=== PATIENT | female | born 1980 | race Caucasian/White ===

== ENCOUNTER 2021-10-04 12:20 | Emergency (ER) | payer OTHER, SELFPAY ==
--- NOTE | ~2021-10-04 | CT_ITS ---
EXAMINATION: CT brain wo con DATE: 10/04/2021 13:06 INDICATION: Headache post head injury TECHNIQUE: Computed tomography (CT) of the head was performed without intravenous contrast. Sagittal and coronal reconstructions were performed. The mA was adjusted according to patient size. Iterative reconstruction technique was employed. The dose-length product was 605.33 mGy-cm. COMPARISON: None FINDINGS: No fracture. No acute intracranial hemorrhage, acute infarction or abnormal extra axial fluid collect ion. Ventricles are normal and symmetric. No mass/mass effect. The orbits, paranasal sinuses and mast oid air cells are normal. IMPRESSION: 1. Normal head CT. No fracture or acute intracranial process. Reviewed, dictated and finalized at location [facility]. [facility]
[2021-10-04 12:27] VITALS: BP 127/80; PULSE 73; RESP 16; TEMP 36.4; O2SAT 100
--- NOTE | 2021-10-04 12:50 | ED.HA ---
HPI - Headache General Chief Complaint: Headache Stated Complaint: headache Time Seen by Provider: 10/04/21 12:28 Source: patient Mode of arrival: ambulatory Limitations: no limitations History of Present Illness HPI Narrative: Patient is a 41-year-old female complaining of headache, dull, generalized, 7 out of 10, nonradiating started 6 days ago after she hit her head on a ski lift. Patient denies any neck, chest, abdomen, back, pelvis, hip or any extremity pain/injury. Patient denies any loss of consciousness. Patient was able to stand up and ambulate after the fall. Patient denies any focal weakness or numbness, speech or visual disturbance, or unsteady gait. Related Data Allergies Allergy/AdvReac Type Severity Reaction Status Date / Time No Known Allergies Allergy Verified 10/04/21 13:39 Review of Systems Review of Systems: All systems reviewed & are unremarkable except as noted in HPI and below Constitutional: Constitutional: Denies body ache(s), Denies chills, Denies excessive sweating, Denies fatigue, Denies fever(s), Denies headache(s), Denies lethargy, Denies malaise, Denies weakness and Denies weight loss Eyes: Eyes: Denies blurry vision, Denies change in vision and Denies loss of vision ENT: Denies dizziness, Denies ear discharge, Denies headache(s), Denies lip swelling, Denies epistaxis, Denies nasal congestion, Denies neck pain, Denies throat swelling and Denies tongue swelling Cardiovascular: Cardiovascular: Denies chest pain, Denies chest pain at rest, Denies chest pain with activity, Denies diaphoresis, Denies rapid heart rate, Denies edema, Denies irregular heart rhythm, Denies lightheadedness, Denies palpitations, Denies dyspnea and Denies dyspnea on exertion Respiratory: Respiratory: Denies chest congestion, Denies cough, Denies hemoptysis, Denies dyspnea and Denies dyspnea on exertion Gastrointestinal: Gastrointestinal: Denies abdominal pain, Denies melena, Denies hematochezia, Denies diarrhea, Denies nausea, Denies vomiting and Denies hematemesis Musculoskeletal: Musculoskeletal: Denies abnormal gait, Denies deformity, Denies joint swelling, Denies limited range of motion, Denies neck pain and Denies numbness Neurologic: Denies Abnormal speech present, Denies abnormal gait, Denies confusion, Denies dizziness, Denies focal weakness, Denies loss of vision, Denies numbness, Denies Other visual disturbances, Denies Sensory deficit (Neuro) and Denies weakness Psychiatric: Psychiatric: Denies confusion, Denies depression, Denies auditory hallucinations, Denies homicidal ideation and Denies suicidal ideation Endocrine: Endocrine: Denies cold intolerance, Denies excessive sweating, Denies fatigue, Denies heat intolerance and Denies palpitations Hematologic/Lymphatic: Hematologic/Lymphatic: Denies easy bleeding and Denies easy bruising Allergic/Immunologic: Allergic/Immunologic: Denies lip swelling, Denies throat swelling and Denies tongue swelling PMFSH Comments Past medical history: None Family history: Unknown Social history: Non-smoker, occasional EtOH, no drug use Exam Const: General: cooperative, healthy appearing, comfortable, no acute distress, well developed, alert and awake; No confusion Orientation/consciousness: oriented to person, oriented to place, oriented to time, patient oriented x3 and No confusion Limitations: no limitations HENMT: Head: normal to inspection, normocephalic and atraumatic Ears: hearing grossly normal bilaterally, TM normal on the right and TM normal on the left General nose exam: Normal external nose present, Normal nares present and No nasal discharge present Face and sinus: normal facial exam Mouth: Yes Normal oral and palatal mucosa present, Yes lip normal, Yes tongue normal and Yes oropharynx normal Throat: posterior oropharynx normal, tonsils normal and uvula midline Eyes: General: appearance normal, both eyes and all related structures Pupils: Equal, round and reactive p
[2021-10-04] MEDS: HYDROcodone/acetaminophen (*CRX) 5-325 MG TABLET 1 TAB PO (13:42)
[2021-10-04] MEDS: KETOROLAC 30 MG/ML VIAL (*BKC) IM (13:43)
[2021-10-04 14:51] VITALS: BP 128/80; PULSE 70; RESP 14; TEMP 36.5; O2SAT 100
== END 2021-10-04 14:53 | disposition home or self-care (01) ==
PROVIDERS: Emergency Provider Emergency Medicine
DX: F07.81 Postconcussional syndrome (principal); G44.309 Post-traumatic headache, unspecified, not intractable
CPT/HCPCS: 70450; 96372; 99284; A9270; J1885

== ENCOUNTER 2022-09-04 13:14 | Emergency (ER) | payer OTHER, MEDICAID, SELFPAY ==
[2022-09-04 13:18] VITALS: BP 178/92; PULSE 96; RESP 18; TEMP 36.4; O2SAT 99
--- NOTE | 2022-09-04 13:29 | ED.ABDPAIN ---
HPI - Abdominal Pain General Chief Complaint: Abdominal Pain Stated Complaint: abd pain, vomiting Time Seen by Provider: 09/04/22 13:17 History of Present Illness HPI narrative: Pt presents with epigastric and LUQ abdominal pain this morning. Pt has had vomiting in the mornings the last several days and one episode of diarrhea. Pt has taken ibuprofen the last couple of days as well. Pt says the pain radiates through to her back. Pt has no significant GI history. Pt had partial hysterectomy in February. Related Data Allergies Allergy/AdvReac Type Severity Reaction Status Date / Time No Known Allergies Allergy Verified 10/04/21 13:39 Review of Systems Review of Systems: All systems reviewed & are unremarkable except as noted in HPI and below Exam Const: General: healthy appearing Nutritional Appearance: well nourished Limitations: no limitations HENMT: Mouth: Yes Normal oral and palatal mucosa present Resp: Effort & Inspection: normal respiratory effort Auscultation: clear to auscultation bilaterally Cardio: Rate: regular rate Rhythm: regular rhythm GI: GI Palp: Yes Soft to palpation and Yes Tenderness to palpation present (GI) (LUQ) Auscultation: normal bowel sounds Skin: General skin exam: normal color Rashes: no rashes Neuro: General: patient oriented x3, moves all extremities, no focal motor deficits and CN's II-XI intact bilaterally Cranial nerves: Yes Nystagmus not present Speech: normal speech Extrem: General: normal to inspection and no clubbing, cyanosis or edema Psych: Mental Status: mental status grossly normal Affect: normal affect Attitude: cooperative Course Course Emergency Course: pt feels much better after IV zofran and pepcid and fentanyl. labs look good. likely gastritis, will discharge home on pepcid and zofran. Vital Signs Vital signs: Vital Signs Temperature 97.6 F 09/04/22 13:18 Pulse Rate 96 09/04/22 13:18 Respiratory Rate 18 09/04/22 13:18 Blood Pressure 178/92 H 09/04/22 13:18 Pulse Oximetry 99 09/04/22 13:18 Oxygen Delivery Room Air 09/04/22 13:18 Temperature 97.6 F 09/04/22 13:18 Pulse Rate 78 09/04/22 15:28 Respiratory Rate 16 09/04/22 15:28 Blood Pressure 124/88 09/04/22 15:28 Pulse Oximetry 98 09/04/22 15:28 Oxygen Delivery Room Air 09/04/22 13:18 MDM - Abdominal Pain Differential Diagnosis Differential diagnosis: Likely other (gastritis, PUD, pancreatitis, gallstones) Lab Data Attestation: I reviewed the patient's lab results. 09/04/22 13:26 09/04/22 13:26 Labs: Lab Results 09/04/22 09/04/22 09/04/22 Range/Units 13:26 13:26 13:27 WBC 12.0 H (4.5-10.0) K/mm3 RBC 4.40 (4.2-5.4) M/mm3 Hgb 13.1 (12.0-15.0) g/dL Hct 41.1 (37.0-47.0) % MCV 93.4 (80-100) fl MCH 29.8 (26-34) pg MCHC 31.9 L (32-36) g/dl RDW 12.8 (11.5-14.5) % Plt Count 235 (150-375) k/mm3 MPV 10.8 H (7.4-10.4) fl Immature Gran % (Auto) 0.3 (0-0.5) % Neut % (Auto) 75.1 H (45.5-73.1) % Lymph % (Auto) 18.3 (18.3-44.2) % [place] % (Auto) 5.6 (2.6-8.5) % Eos % (Auto) 0.3 (0-4.4) % Baso % (Auto) 0.4 (0.2-1.2) % Lymph # (Auto) 2.19 (0.9-3.2) K/mm3 [place] # (Auto) 0.7 H (0.1-0.6) K/mm3 Eos # (Auto) 0.0 (0-0.3) K/mm3 Baso # (Auto) 0.1 (0.0-0.1) K/mm3 Abs Immat Gran (auto) 0.04 H (0.00-0.031) K/mm3 Absolute Neuts (auto) 9.0 H (1.3-6.7) K/mm3 Absolute Nucleated RBC 0.0 (0.0-0.012) K/mm3 Nucleated RBC % 0.0 (0.0-0.2) % Sodium 138 (137-145) mmol/L Potassium 3.5 (3.4-5.0) mmol/L Chloride 105 (98-107) mmol/L Carbon Dioxide 28 (22-30) mmol/L Anion Gap 5 L (8-16) mmol/L BUN 10 (7-17) mg/dL Creatinine 0.70 (0.7-1.0) mg/dL Estim Creat Clear Calc 88 ml/min Estimated GFR > 60 (59 - ) Glucose 120 H (65-110) mg/dL Calcium 9.2 (8.4-10.2) mg/dL Total Bilirubin 0.8 (0.2-1.3
[2022-09-04 13:34] LABS: Appearance Urine Clear (Clear); Bilirubin Urine Negative (Negative); Blood Urine Trace-lysed (Negative); Color Urine Yellow (Yellow); Glucose Urine UA Negative (Negative); Ketones Urine Negative (Negative); Leukocyte Esterase Ur Negative LEU/UL (Negative); Nitrate Urine Negative (Negative); Protein Urine Negative (Negative); Specific Grav Ur 1.025 (1.001-1.035); Urobilinogen Urine 0.2 mg/dL (<2.0); pH Urine 5.5 (5.0-9.0)
[2022-09-04 13:34] LABS: Basophils Absolute Auto 0.1 K/mm3 (0.0-0.1); Basophils Percent Auto 0.4 % (0.2-1.2); Eosinophils Percent Auto 0.3 % (0-4.4); Hematocrit 41.1 % (37.0-47.0); Hemoglobin 13.1 g/dL (12.0-15.0); Immature Granulocyte Absolute 0.04 K/mm3 (0.00-0.031); Immature Granulocyte Percent A 0.3 % (0-0.5); Lymphocytes Absolute Auto 2.19 K/mm3 (0.9-3.2); Lymphocytes Percent Auto 18.3 % (18.3-44.2); Mean Corpuscular HGB Conc 31.9 g/dl (32-36); Mean Corpuscular Hemoglobin 29.8 pg (26-34); Mean Corpuscular Volume 93.4 fl (80-100); Mean Platelet Volume 10.8 fl (7.4-10.4); Monocytes Absolute Auto 0.7 K/mm3 (0.1-0.6); Monocytes Percent Auto 5.6 % (2.6-8.5); Neutrophils Percent Auto 75.1 % (45.5-73.1); Platelet Count Result 235 k/mm3 (150-375); Red Cell Distribution Width 12.8 % (11.5-14.5)
[2022-09-04] MEDS: ONDANSETRON INJ 4 MG/2 ML VIAL IV PUSH (13:36)
[2022-09-04] MEDS: fentaNYL CITRATE INJ (*CRX) 100 MCG/2 ML VIAL 50 MCG IV PUSH (13:36)
[2022-09-04] MEDS: FAMOTIDINE 20 MG/2 ML VIAL IV PUSH (13:36)
[2022-09-04] MEDS: SODIUM CHLORIDE 0.9% IV 1,000 ML 999 ML IV CONT (13:36)
[2022-09-04 13:39] LABS: Mucus Urine Rare /lpf; RBC Urine 0-2 /hpf (0-2); Squamous Epithelial Cell Urine Occasional /hpf (Few)
[2022-09-04 13:42] LABS: Add Urine Microscopic? YES
[2022-09-04 13:47] LABS: Alanine Aminotransferase 14 U/L (6-35); Albumin Level 4.3 g/dL (3.5-5.1); Alkaline Phosphatase 61 U/L (38-126); Anion Gap 5 mmol/L (8-16); Aspartate Amino Transferase 21 U/L (14-36); Bilirubin,Total 0.8 mg/dL (0.2-1.3); Blood Urea Nitrogen 10 mg/dL (7-17); Calcium 9.2 mg/dL (8.4-10.2); Carbon Dioxide 28 mmol/L (22-30); Chloride 105 mmol/L (98-107); Estimated CRCL calculation 88 ml/min; Estimated Glomerular Filt Rate > 60; Glucose 120 mg/dL (65-110); Lipase 96 U/L (23-300); Potassium 3.5 mmol/L (3.4-5.0); Sodium 138 mmol/L (137-145)
--- NOTE | 2022-09-04 15:19 | PC.NURSE ---
Patient fluids not finished at this time
[2022-09-04 15:28] VITALS: BP 124/88; PULSE 78; RESP 16; O2SAT 98
== END 2022-09-04 16:02 | disposition home or self-care (01) ==
PROVIDERS: Emergency Provider Emergency Medicine
DX: K29.70 Gastritis, unspecified, without bleeding (principal)
CPT/HCPCS: 36415; 80053; 81001; 81025; 83690; 85025; 96361; 96374; 96375; 99284; J2405; J3010; J7030

== ENCOUNTER 2023-01-16 13:46 | Outpatient (CLI) | payer OTHER, MEDICAID, SELFPAY ==
--- NOTE | ~2023-01-16 | CT_ITS ---
CT of the Abdomen and Pelvis: Indication: Abdominal pain Technique: 2.5 mm axial scans were obtained through the abdomen and pelvis following intravenous adm inistration of 100 cc of Omnipaque 350. Dose reduction technique was used on this scan by utilizing a utomated exposure control and iterative reconstruction technique. The dose-length product (DLP) was 6 20.61 mGy-cm. Findings: Scans through the lung bases are unremarkable. The liver, spleen, pancreas, gallbladder, and adrenal glands are within normal limits. There there ar e areas of chronic renal cortical scarring bilaterally. No evidence of aortic aneurysm. No lymphaden opathy. No bowel obstruction or bowel wall thickening. There is no evidence to suggest acute appendicitis. Images through the pelvis were performed. Urinary bladder unremarkable. No pelvic mass seen. No ascit es. Impression: No significant abnormalities seen. Reviewed, dictated and finalized at [facility]. Impression: No significant abnormalities seen.
== END 2023-01-16 13:47 ==
PROVIDERS: PCP Family Medicine Sports Medicine; Visit Provider Family Medicine Sports Medicine
DX: E61.1 Iron deficiency (principal); R10.32 Left lower quadrant pain; R10.31 Right lower quadrant pain; R11.0 Nausea
CPT/HCPCS: 74177; Q9967